=== PATIENT | male | born 1950 | race Hispanic/Latino ===

== ENCOUNTER → 2018-02-24 | Outpatient (CLI) | payer MEDICARE | END | disposition home or self-care (01) | LOC: OIH 10:57 | PROVIDERS: ATTEND Family Medicine | DX: M25.551 Pain in right hip (principal); M25.561 Pain in right knee; M79.651 Pain in right thigh | CPT/HCPCS: 73502; 73552; 73562 ==

== ENCOUNTER → 2018-09-22 | Outpatient (CLI) | payer MEDICARE | END | disposition home or self-care (01) | LOC: OIH 09:09 | PROVIDERS: ATTEND Family Medicine | DX: I13.2 Hypertensive heart and chronic kidney disease with heart failure and with stage 5 chronic kidney disease, or end stage renal disease (principal); I50.9 Heart failure, unspecified; N18.5 Chronic kidney disease, stage 5; R09.89 Other specified symptoms and signs involving the circulatory and respiratory systems; R06.02 Shortness of breath | CPT/HCPCS: 71046 ==